=== PATIENT | male | born 1995 | race Caucasian/White ===

== ENCOUNTER 2016-07-29 15:11 | Emergency (ER) | payer BC, OTHER ==
[2016-07-29 15:28] VITALS: BP 121/59; PULSE 81; RESP 15; TEMP 98.2; O2SAT 97
[2016-07-29] MEDS ORDERED: SKIN ADHESIVE (DERMABOND) 1 EACH TP ONE ×3 (15:55→16:07)
--- NOTE | 2016-07-29 16:13 | UCPHY ---
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 Review of systems General no fever no chills no weakness HEENT no eye pain no eye discharge. No eye redness, no sore throat Respiratory no cough, no shortness of breath Cardiac no chest pain, no peripheral edema GI no abdominal pain, no diarrhea, no constipation, no nausea, no vomiting no flank pain, no hematuria, no dysuria Musculoskeletal no myalgias, no joint pain Heme no easy bruising, no easy bleeding Endo no polyuria, no polydipsia Skin no rashes, no pruritus Neuro no syncope, no dizziness, no headaches Psych is no suicidal ideation, no homicidal ideation Past Medical/Surgical History: Noncontributory Social History: Denies excessive alcohol or drug use Smoking Status: Never smoked Physical Exam: 21-year-old male alert and oriented no acute distress nontoxic appearance Alert and oriented in no acute distress nontoxic appearance, afebrile Atraumatic normocephalic Neck no JVD Lungs clear to auscultation, no respiratory distress Heart regular rate and rhythm Extremities no cyanosis clubbing edema Right pointer finger-distal lateral aspect of finger pad with small flap laceration Non gaping, no evidence of foreign body Finger with full range of motion good capillary refill Constitutional: Initial Vital Signs Temperature (C) 36.8 C 07/29/16 15:18 Heart Rate 81 07/29/16 15:18 Respiratory Rate 15 07/29/16 15:18 Blood Pressure 121/59 H 07/29/16 15:18 O2 Sat (%) 97 07/29/16 15:18 O2 Delivery Mode Room Air Allergies/Adverse Reactions: No Known Allergies Allergy (Unverified 01/12/16 09:07) Home Medications: Medication Instructions Recorded NK [No Known Home Meds] 01/12/16 Medical Decision Making Procedures: Procedure note-laceration The wound was irrigated with copious amounts of saline. Skin adhesive was used to close the wound Patient tolerated procedure well. ED Course/Re-evaluation: Patient seen and evaluated for finger laceration Wound care done Adhesive applied Impression Superficial distal finger tip laceration Plan Adhesive/Dermabond Follow-up as needed - Data Points Medications Given: Discontinued Medications Diphtheria/Tetanus/Acell Pertussis (Boostrix) 0.5 ml IM .ONCE ONE Stop: 07/29/16 16:33 Last Admin: 07/29/16 16:40 Dose: 0.5 ml Octyl Cyanoacrylate (Dermabond) 1 each TP EDNOW ONE Stop: 07/29/16 16:08 Last Admin: 07/29/16 16:05 Dose: 1 each Departure - Departure Disposition: Home, Routine, Self-Care Clinical Impression: Laceration of right index finger Condition: Good Instructions: Finger Laceration (ED), Skin Adhesive Care (ED) Referrals: NONE *PRIMARY CARE P,. [Primary Care Provider] - As per Instructions Stand Alone Forms: Work Limited Duty - PQRS PQRS Measurement: na
[2016-07-29] MEDS ORDERED: TDAP ADULT 0.5 ML INJ (BOOSTRIX) IM ONE (16:32)
== END 2016-07-29 16:30 | disposition home or self-care (01) ==
LOC: CED 15:11
DX: S61.210A Laceration without foreign body of right index finger without damage to nail, initial encounter (principal); W26.0XXA Contact with knife, initial encounter; Y93.G1 Activity, food preparation and clean up; Y92.511 Restaurant or cafe as the place of occurrence of the external cause; Y99.0 Civilian activity done for income or pay
CPT/HCPCS: 12001-PO; 99203-PO; G0463-PO